=== PATIENT | male | born 1955 | race African-American/Black ===

== ENCOUNTER 2017-05-07 13:08 | Emergency (ER) | payer MEDICAID ==
[~2017-05-07] VITALS: Ht 165.1 cm; Wt 61.2 kg
[2017-05-07] MEDS ORDERED: TRIHEXYPHENIDYL2 MG ORAL (13:56)
[2017-05-07] MEDS ORDERED: TEMAZEPAM30 MG ORAL (13:56)
[2017-05-07] MEDS ORDERED: LORAZEPAM2 MG ORAL (13:56)
[2017-05-07] MEDS ORDERED: PROPRANOLOL HCL20 MG ORAL (13:56)
[2017-05-07] MEDS ORDERED: TRAZODONE HCL50 MG ORAL (13:56)
[2017-05-07] MEDS ORDERED: ASPIRIN EC81 MG ORAL (13:56)
[2017-05-07] MEDS ORDERED: RISPERDAL1 MG PO (13:56)
[2017-05-07 14:20] LABS: BASOPHILS % (AUTO) 1.3 % (0.0-2.0); EOSINOPHILS % (AUTO) 0.4 % (0.0-3.0); HEMATOCRIT 38.9 % (42.0-52.0); HEMOGLOBIN 13.3 G/DL (14.2-18.0); LYMPHOCYTES % (AUTO) 38.4 % (20.0-45.0); MEAN CORPUSCULAR VOLUME 92 FL (80-99); MONOCYTES % (AUTO) 14.8 % (1.0-10.0); NEUTROPHILS % (AUTO) 45.2 % (45.0-75.0); PLATELET COUNT 253 K/UL (150-450); RED BLOOD COUNT 4.23 M/UL (4.70-6.10); RED CELL DISTRIBUTION WIDTH 12.1 % (11.6-14.8); WHITE BLOOD COUNT 4.8 K/UL (4.8-10.8)
--- NOTE | 2017-05-07 14:28 | Diagnostic Imaging Report ---
Indication: Altered mental status Technique: Contiguous 5 mm thick transaxial imaging of the head obtained in a Siemens Sensation [address] scanner. Soft tissue and bone windows generated. Automatic Exposure Control was utilized. Total Dose length Product (DLP): 1411.[address] Dose Index Volume (CTDIvol): 70.38 mGy Comparison: none Findings: The size and configuration of the cortical sulci, basal cisterns, and ventricles are within normal limits for age. There is no mass effect, midline shift, or edema identified. There is no evidence of acute hemorrhage or abnormal intra-axial or extra-axial fluid collections. The bones and soft tissues are unremarkable. Impression: No mass effect, edema or acute bleed. The CT scanner at [facility] is accredited by the [employer] and the scans are performed using dose optimization techniques as appropriate to a performed exam including Automatic Exposure control.
[2017-05-07 14:55] VITALS: BP 172/100
[2017-05-07 14:57] LABS: ANION GAP 8 mmol/L (5-15); BLOOD UREA NITROGEN 12 mg/dL (7-18); CALCIUM 9.9 MG/DL (8.5-10.1); CARBON DIOXIDE 27 MMOL/L (21-32); CHLORIDE 102 MMOL/L (98-107); CREATININE 0.8 MG/DL (0.55-1.30); POTASSIUM 3.7 MMOL/L (3.5-5.1); SODIUM 137 MMOL/L (136-145)
--- NOTE | 2017-05-07 15:06 | Diagnostic Imaging Report ---
Indication: Dyspnea Comparison: None A single view chest radiograph was obtained. Findings: Cardiomediastinal appearance is within normal limits for age. Aorta is ectatic. Pulmonary vascularity is appropriate. The diaphragmatic contour is smooth and costophrenic angles are sharp. No pleural effusions are identified. The bones are unremarkable. Impression: No acute findings
--- NOTE | 2017-05-07 15:07 | Emergency Room Report ---
History of Present Illness General Chief Complaint: Generalized Weakness Source: Medical Record Present Illness HPI 61YOM BIBEMS for "weakness" to bilateral "ankles" since yesterday Patient short on HPI, was here for 30 minutes and "I want to get out of here" but cannot ambulate History of HTN Multiple medications listed on sheet from [facility] Otherwise denies chest pain, SOB, abd pain Allergies: Coded Allergies: No Known Allergies (Unverified , 05/07/17) Patient History Past Medical History: HTN Past Surgical History: none Pertinent Family History: none Social History: Denies: smoking, alcohol use, drug use Immunizations: UTD Reviewed Nursing Documentation: PMH: Agreed, PSxH: Agreed Nursing Documentation-PMH Past Medical History: No History, Except For Hx Hypertension: Yes Hx Asthma: Yes History Of Psychiatric Problem: Yes - Bipolar Hx Cerebrovascular Accident: Yes Review of Systems All Other Systems: negative except mentioned in HPI Physical Exam Vital Signs Date Time Temp Pulse Resp B/P (MAP) Pulse Ox O2 Delivery O2 Flow Rate FiO2 05/07/17 13:03 97.8 66 14 167/95 98 Room Air 97.9 Sp02 EP Interpretation: reviewed, normal General Appearance: normal inspection, well appearing, no apparent distress, alert, GCS 15, non-toxic Head: normocephalic, atraumatic Eyes: bilateral eye PERRL, bilateral eye EOMI ENT: normal ENT inspection, hearing grossly normal, normal pharynx, no angioedema, normal voice, TMs + canals normal, uvula midline, moist mucus membranes Neck: normal inspection, full range of motion, supple, thyroid normal, no meningismus, no bony tend Respiratory: normal inspection, lungs clear, normal breath sounds, no rhonchi, no respiratory distress, no retraction, no accessory muscle use, no wheezing, speaking full sentences Cardiovascular #1: regular rate, rhythm, no edema, no JVD, normal capillary refill Gastrointestinal: normal inspection, normal bowel sounds, non tender, soft, no mass, no peritonitis, non-distended, no guarding, no hernia, no pulsatile mass Genitourinary: no CVA tenderness Musculoskeletal: normal inspection, back normal, normal range of motion, no calf tenderness, pelvis stable, Shen's Sign negative Neurologic: normal inspection, alert, oriented x3, responsive, casing fluid tender III-XII nml as tested, cerebellar normal, normal gait, speech normal, other - reduced 2/5 strength bilateral lower extremities. Cant stand bedside (unknown baseline) Psychiatric: normal inspection, judgement/insight normal, mood/affect normal, no suicidal/homicidal ideation, no delusions Skin: normal inspection, normal color, no rash Lymphatic: normal inspection, no adenopathy Medical Decision Making Diagnostic Impression: Primary Impression: Episode of generalized weakness ER Course VSS, afebrile CT head negative for acute ICH ECG NSR, no ischemia Labs unremarkable Patient will warrant admission for unable to walk, ?acuity Endorsed to Dr Frey to followup admission/transfer at 3pm EKG Diagnostic Results Rate: normal Rhythm: NSR ST Segments: no acute changes ASA given to the pt in ED: No Rhythm Strip Diag. Results EP Interpretation: yes Rate: 65 Rhythm: NSR, no PVC's, no ectopy Chest X-Ray Diagnostic Results Chest X-Ray Diagnostic Results : Chest X-Ray Ordered: Yes # of Views/Limited/Complete: 1 View Indication: Other - Weaknes EP Interpretation: Yes Interpretation: no consolidation, no effusion, no pneumothorax, no acute cardiopulmonary disease Impression: No acute disease Electronically Signed by: Dr Jess Desouza Last Vital Signs Date Time Temp Pulse Resp B/P (MAP) Pulse Ox O2 Delivery O2 Flow Rate FiO2 05/07/17 14:55 98.0 66 18 172/100 98 Room Air 98.0 Status: improved Disposition: ADMITTED INPATIENT Condition: Serious Referrals: [facility],REFERRING (PCP) Patient Instructions: JESS Winslow M.D. May 07, 2017 15:07
[2017-05-07 15:13] LABS: ALANINE AMINOTRANSFERASE 53 U/L (12-78); ALBUMIN 3.9 G/DL (3.4-5.0); ALBUMIN/GLOBULIN RATIO 0.9 (1.0-2.7); ALKALINE PHOSPHATASE 113 U/L (46-116); ASPARTATE AMINO TRANSFERASE 48 U/L (15-37); BILIRUBIN,TOTAL 0.5 MG/DL (0.2-1.0); CKMB 8.1 NG/ML (0.0-3.6); CREATINE KINASE 1293 U/L (26-308)
[2017-05-07 16:15] VITALS: BP 209/162
--- NOTE | 2017-05-07 16:57 | Diagnostic Imaging Report ---
Indication: Pelvic pain Technique: Continuous helical transaxial imaging of the pelvis was obtained from the iliac crest to the pubic symphysis. Coronal 2-D reformats were also obtained. Study obtained in a Siemens sensation [address] Intravenous non-ionic contrast was administered. Total Dose length Product (DLP): 263.[address] Dose Index Volume (CTDIvol): 8.78 mGy Comparison: None Findings: There is no acute fracture identified. Marginal periarticular spurs noted in the sacroiliac joints lower lumbar facets and both hip joints. Alignment is normal. Surgical clips demonstrated in the right groin. Vascular calcifications noted within the femoral arteries and the aorta/iliac arteries. Bladder is mildly distended. IMPRESSION: No acute injury identified. Other incidentals as above The CT scanner at [facility] is accredited by the [employer] and the scans are performed using dose optimization techniques as appropriate to a performed exam including Automatic Exposure control.
[2017-05-07 18:02] LABS: APPEARANCE,URINE CLEAR; BILIRUBIN, URINE NEGATIVE (NEGATIVE); COLOR,URINE PALE YELLOW; GLUCOSE, URINE (UA) NEGATIVE (NEGATIVE); KETONES,URINE NEGATIVE (NEGATIVE); LEUKOCYTE ESTERASE ,URINE NEGATIVE (NEGATIVE); NITRITE,URINE NEGATIVE (NEGATIVE); PH,URINE 6 (4.5-8.0); PROTEIN,URINE NEGATIVE (NEGATIVE); UROBILINOGEN,URINE NORMAL MG/DL (0.0-1.0)
[2017-05-07 20:34] VITALS: BP 151/89
--- NOTE | 2017-05-08 14:23 | Cardiology Report ---
APPROVED REPORT EKG Measurement Heart [id number] FL [id number] Sinus bradycardia Otherwise normal ECG
== END 2017-05-07 20:20 | disposition other institution (70) ==
LOC: EDBD 13:08 → EMR 13:40
DX: R53.1 Weakness (principal); I10 Essential (primary) hypertension; J45.909 Unspecified asthma, uncomplicated; F31.9 Bipolar disorder, unspecified; Z86.73 Personal history of transient ischemic attack (TIA), and cerebral infarction without residual deficits
CPT/HCPCS: 36415; 70450; 71045; 72192; 80053; 81003; 82550; 82553; 84484; 85025; 93005; 99285